=== PATIENT | female | born 1995 | race African-American/Black ===

== ENCOUNTER 2021-01-24 19:58 | Emergency (ER) | payer MEDICAID, OTHER ==
[~2021-01-24] VITALS: Ht 175.3 cm; Wt 91.0 kg
[2021-01-24 22:01] LABS: BASOPHILS % 0.4 % (0.0-2.0); HEMOGLOBIN. 7.8 g/dL (12.0-16.0); LYMPHOCYTES % 13.7 % (20.0-50.0); MEAN CORPUSCULAR HEMOGLOBIN 22.7 pg (28.0-32.0); MEAN CORPUSCULAR VOLUME 72.9 fL (81.0-99.0); MEAN PLATELET VOLUME 8.7 fl (7.4-10.4); MONOCYTES % 4.5 % (2.0-8.0); NEUTROPHILS % 80.4 % (40.0-76.0); PLATELET 173 x1000/uL (130-400); RED BLOOD CELL COUNT 3.43 mill/uL (4.2-5.4); RED CELL DISTRIBUTION WIDTH 20.2 % (11.6-14.6)
[2021-01-24 22:05] LABS: CHLORIDE 116 mEq/L (98-107)
[2021-01-25 01:00] VITALS: BP 160/95
== END 2021-01-25 01:30 | disposition home or self-care (01) ==
LOC: ER 20:31
DX: S31.41XA Laceration without foreign body of vagina and vulva, initial encounter (principal); J45.909 Unspecified asthma, uncomplicated; D64.9 Anemia, unspecified; X58.XXXA Exposure to other specified factors, initial encounter; Y93.89 Activity, other specified; Y92.9 Unspecified place or not applicable
CPT/HCPCS: 12001; 36415; 76856; 80053; 85025; 86850; 86900; 99284

== ENCOUNTER 2025-01-02 03:04 | Emergency (ER) | payer OTHER ==
[~2025-01-02] VITALS: Ht 165.1 cm; Wt 87.0 kg
[2025-01-02 03:17] VITALS: TEMP 37; O2SAT 99
[2025-01-02 05:12] VITALS: BP 111/74; PULSE 87; RESP 20; O2SAT 98
== END 2025-01-02 05:30 | disposition home or self-care (01) ==
LOC: ER 03:04
DX: F10.129 Alcohol abuse with intoxication, unspecified (principal); F41.9 Anxiety disorder, unspecified; Y90.9 Presence of alcohol in blood, level not specified
CPT/HCPCS: 99283